=== PATIENT | male | born 1965 | race Caucasian/White ===

== ENCOUNTER 2024-05-20 14:17 | Outpatient (AMB) | payer BC, SELFPAY ==
--- NOTE | 2024-05-20 14:22 | A.OFFVIS_ITS ---
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 Job Analyst Required: No Allergies No Known Allergies Allergy (Verified 05/20/24 14:24) HPI Comments Details: 59y/o male comes for evaluation of tremors. He describes intermittent postural action tremors and rest tremors in his right hand for past 8 months. He feels it is better in past month. The episodes of tremors are sporadic. He is not sure of any exacerbating or relieving factors. He denies any problems with hand coordination. He reports midnight arousals, snoring , excessive daytime fatigue.No daytime sleepiness. Mood is stable No change in voice, no drooling No swallowing issues. No change in handwriting No problems using utensils No difficulty dressing or showers he has occasional dizziness. He has neck pain when he wakes up in the morning.No h/o head injury , falls, walking difficulties. He denies vertigo,diplopia, nausea,constipation. denies constipation. 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 Mother No problems noted. Brother HTN (hypertension) Social History Household Members: Spouse Housing: House Alcohol intake: current Comment: socially Patient Tobacco Use Status: Former Tobacco user Years Smoked: Dip- smokeless tobacco Physical Exam Vital Signs: Last Vital Signs Pulse 96 05/20/24 14:25 Resp 16 05/20/24 14:25 BP 126/82 05/20/24 14:25 Pulse Ox 97 05/20/24 14:25 Oxygen Delivery Method Room Air 05/20/24 14:25 BMI result Body Mass Index 35.5 Const General: cooperative, healthy appearing, comfortable and no acute distress Nutritional Appearance: obese Orientation/consciousness: patient oriented x3 HEENT Head: Yes normal to inspection Eyes Pupils: Equal, round and reactive pupils present Neuro Other: Decreased facial expression Decreased right facial movement Right hand rest tremors and postural tremors Cogwheel rigidity 1-2+ right UE Fine Finger movements - Decrease mildly R>L Foot taps decreased Mild R>L Gait - decreased arm swing on the right , rest tremors on the right General: patient oriented x3, moves all extremities and no focal motor deficits Cranial nerves: Yes Facial sensation intact/muscles of mastication intact, Yes Equal, round and reactive pupils present, Yes Bilaterally intact EOM present, Yes Nystagmus not present, Yes Normal facial strength present, Yes Midline tongue present, Yes Symmetric palate elevation present and Yes Ability to bilaterally elevate shoulders present Cognition (Neuro): normal cognition Motor exam (neuro): 5/5 motor strength present throughout and Tremors during motor activity present Deep tendon reflexes (DTR's): Right triceps reflex intensity grade: 1+, Left triceps reflex intensity grade: 1+, Rt Biceps (C5, C6): 1+, Left biceps reflex intensity grade: 1+, Right brachioradialis reflex intensity grade: 1+, Left brachioradialis reflex intensity grade: 1+, Right patellar reflex intensity grade: 1+ and Left patellar reflex intensity grade: 1+ Coordination: [id number] test normal Assessment & Plan Assessment & Plan (1) Pill rolling tremors: Comment: likely early tremor predominant Parkinsons disease Code(s): R25.1 - Tremor, unspecified Category: Medical (2) Snoring: Code(s): R06.83 - Snoring Category: Medical (3) Hypersomnia: Code(s): G47.10 - Hypersomnia, unspecified Category: Medical Plan Discussed the possible diagnosis of Parkinsons in detail I will evaluate hi with MRI brain Currently his symptoms does not interfere with his daily activities. I will monitor him clinically will consider YOLI scan Home sleep study for sleep apnea. Orders: Orders RT home sleep study Today G47.10 - Hypersomnia, unspecified, R06.83 - Snoring MR head/brain wo con Today R25.1 - Tremor, unspecified Coding Level of Care Code New Pt Level 4 (79364) Complex EM visit Add On G2211 Diagnoses Pill rolling tremors R25.1 Snoring R06.83 Hypersomnia G47.10
[2024-05-20 14:25] VITALS: BP 126/82; PULSE 96; RESP 16; O2SAT 97; BMI 35.5
== END 2024-05-20 15:06 | disposition home or self-care (01) ==
PROVIDERS: PCP Internal Medicine; Visit Provider Psychiatry & Neurology Neurology
DX: R25.1 Tremor, unspecified (principal); R06.83 Snoring; G47.10 Hypersomnia, unspecified
CPT/HCPCS: 99204

== ENCOUNTER → 2024-05-20 14:17 | Outpatient (BNVA) | payer BC, SELFPAY | PROVIDERS: PCP Internal Medicine; Visit Provider Psychiatry & Neurology Neurology ==

== ENCOUNTER → 2024-06-15 08:54 | Outpatient (BNV) | payer BC, SELFPAY | PROVIDERS: PCP Internal Medicine; Visit Provider Radiology Diagnostic Radiology | DX: R25.1 Tremor, unspecified (principal) | CPT/HCPCS: 70551 ==

== ENCOUNTER 2024-06-15 08:56 | Outpatient (REF) | payer BC, SELFPAY ==
--- NOTE | ~2024-06-15 | MR_ITS ---
EXAMINATION: MR BRAIN WITHOUT CONTRAST CLINICAL INFORMATION: 51-year-old male, pill-rolling tremors, rule out Parkinson's. COMPARISON: None available. TECHNIQUE: MRI of the brain was obtained using routine sequences without contrast. Exam was performed utilizing standard sequences on a 1.5 Jonna Siemens magnet, without IV contrast. FINDINGS: There is no diffusion restriction. There is no intracranial hemorrhage, acute infarction, mass effect, or edema. Ventricles, sulci, and cisterns are normal in size and configuration for patient age. No shift of midline. No abnormal patterns of atrophy. No significant abnormal hemosiderin deposition is identified. There are a few scattered punctate and minimally confluent foci of white matter T2 hyperintensity in the periventricular, subcortical, and hemispheric deep white matter, nonspecific, most likely representing mild changes of small vessel ischemia. Midline structures appear normally formed. The pituitary gland appears normal. Posterior fossa structures appear normal. Cerebellar tonsils are appropriately located. Major flow voids are preserved within the skull base. There is mild fusiform dilation and tortuosity of the left carotid siphon at the level of the sella. No discrete saccular aneurysm appreciated although correlation with MR angiography may be of benefit. The globes and orbital contents demonstrate no abnormalities. Paranasal sinuses are clear bilaterally. Nasal septum is midline without spur. There is a small amount of fluid in the left mastoid air cells, extending to the mastoid antrum. Right Mastoids and bilateral tympanic cavities are normally aerated. Extracranial soft tissues demonstrate prominence of the adenoidal soft tissues, consistent with reactive etiology. No suspicious bone marrow changes are evident. Atlantoaxial joint is normal. MR/MR head/brain wo con IMPRESSION: 1. No evidence of intracranial hemorrhage, acute infarction, mass effect, or edema. 2. Mild changes of small vessel ischemia, age appropriate. 3. No abnormal patterns of atrophy. No MR findings specific to Parkinson's, would recommend clinical diagnosis based on symptomatology. 4. Left mastoid effusion. 5. Tortuosity and mild fusiform dilation of the left internal carotid artery flow void within the carotid siphon region. No discrete saccular aneurysm appreciated although this is not a dedicated angiographic study. Consider correlating with MR angiography or CT angiography. 6. Additional ancillary findings as discussed in the body of the report. Electronically signed by: Raffi Mahmood MD 06/27/2024 11:19 AM EDT
== END 2024-06-15 08:57 | disposition home or self-care (01) ==
LOC: HO.MRI 08:56
PROVIDERS: PCP Internal Medicine; Visit Provider Psychiatry & Neurology Neurology
DX: R25.1 Tremor, unspecified (principal)
CPT/HCPCS: 70551

== ENCOUNTER → 2024-07-07 14:48 | Outpatient (REF) | payer BC, SELFPAY | LOC: HO.SL 14:48 | PROVIDERS: PCP Internal Medicine; Visit Provider Psychiatry & Neurology Neurology | DX: G47.33 Obstructive sleep apnea (adult) (pediatric) (principal) | CPT/HCPCS: 95806 ==

== ENCOUNTER → 2024-07-07 15:08 | Outpatient (BNV) | payer BC, SELFPAY | PROVIDERS: PCP Internal Medicine; Visit Provider Psychiatry & Neurology Neurology | DX: G47.33 Obstructive sleep apnea (adult) (pediatric) (principal) | CPT/HCPCS: 95806 ==

== ENCOUNTER 2024-08-05 08:27 | Outpatient (REF) | payer BC, SELFPAY ==
[2024-08-05] MEDS: gadobutroL 10 ML VIAL IVPUSH (10:58)
== END 2024-08-05 08:28 | disposition home or self-care (01) ==
LOC: HO.MRI 08:27
PROVIDERS: PCP Internal Medicine; Visit Provider Psychiatry & Neurology Neurology
DX: R93.0 Abnormal findings on diagnostic imaging of skull and head, not elsewhere classified (principal)
CPT/HCPCS: 70546; A9585

== ENCOUNTER 2024-12-04 13:45 | Outpatient (AMB) | payer BC, SELFPAY ==
[2024-12-04 13:53] VITALS: BP 122/94; PULSE 86; O2SAT 99; BMI 35.6
--- NOTE | 2024-12-04 13:53 | A.OFFVIS_ITS ---
Vital Signs 12/04/24 13:53 Height 5 ft 10 in Weight 248 lb BMI 35.6 BP 122/94 H Blood Pressure Location Rt brachial Position Sitting Pulse 86 Pulse Source Pulse Oximeter Pulse Oximetry (%) 99 Oxygen Delivery Method Room Air Intake Visit Reasons: follow up Tremors Intake Note: Patient presents for follow up sleep study done 07/07 and MRI done 06/15/24; MRA done 08/05/24 Allergies No Known Allergies Allergy (Verified 12/04/24 13:56) HPI Comments Details: 59y/o male comes for f/u of tremors, parkinsonsism HST showed severe sleep apnea- AHI 20 and O2 e[place]enia was 78%. He is on AUtoPAP and is sleeping well. He denies nay worsening of tremors. He is cocnerned about his memory.. He describes intermittent postural action tremors and rest tremors in his right hand for past 8 months. He feels it is better in past month. The episodes of tremors are sporadic. He is not sure of any exacerbating or relieving factors. He denies any problems with hand coordination. Mood is stable No change in voice, no drooling No swallowing issues. No change in handwriting No problems using utensils No difficulty dressing or showers he has occasional dizziness. He has neck pain when he wakes up in the morning.No h/o head injury , falls, walking difficulties. He denies vertigo,diplopia, nausea,constipation. denies constipation. 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 Mother No problems noted. Brother HTN (hypertension) Social History Household Members: Spouse Housing: House Alcohol intake: current Comment: socially Patient Tobacco Use Status: Former Tobacco user Years Smoked: Dip- smokeless tobacco Physical Exam Vital Signs: Last Vital Signs Pulse 86 03/20/25 13:53 BP 122/94 H 12/04/24 13:53 Pulse Ox 99 12/04/24 13:53 Oxygen Delivery Method Room Air 12/04/24 13:53 BMI result Body Mass Index 35.6 Const General: cooperative, healthy appearing, comfortable and no acute distress Nutritional Appearance: obese Orientation/consciousness: patient oriented x3 HEENT Head: Yes normal to inspection Eyes Pupils: Equal, round and reactive pupils present Neuro Other: Decreased facial expression Decreased right facial movement Right hand rest tremors and postural tremors Cogwheel rigidity 1-2+ right UE Fine Finger movements - Decrease mildly R>L Foot taps decreased Mild R>L Gait - decreased arm swing on the right , rest tremors on the right General: patient oriented x3, moves all extremities and no focal motor deficits Cranial nerves: Yes Facial sensation intact/muscles of mastication intact, Yes Equal, round and reactive pupils present, Yes Bilaterally intact EOM present, Yes Nystagmus not present, Yes Normal facial strength present, Yes Midline tongue present, Yes Symmetric palate elevation present and Yes Ability to bilaterally elevate shoulders present Cognition (Neuro): normal cognition Motor exam (neuro): 5/5 motor strength present throughout and Tremors during motor activity present Coordination: [id number]-ma-[id number] test normal Orientation What is the (year) (season) (date) (day) (month)?: year, season, date, day and month Where are we (state) (county) (town or city) (hospital) (floor)?: state, county, town or city, hospital/clinic and floor Registration Name of 3 unrelated objects clearly and slowly, then ask patient to repeat all 3 of them. (1st repeat determines score. Make sure they can repeat all three): object 1, object 2 and object 3 Attention & Calculation (CHOOSE ONE) Spell WORLD backwards (DLROW): 5 letters Recall Ask patient to repeat the 3 items from question #3.: object 1 and object 2 Language Show patient a wristwatch & ask what it is. Repeat for pencil.: watch and pencil Ask the patient to repeat the phrase 'No ifs, ands, or buts' after you.: correct Ask the patient to 'take a piece of paper with their right hand' 'fold paper in half' 'place paper on floor': take paper in right hand, fold paper in half and place paper on floor Print the sentence 'CLOSE YOUR EYES' on a piece. If patient actually closes eyes then score.: followed written direction Give patient a blank piece of paper & ask to write a sentence. Score if it contains a noun & verb.: sentence contains subject and verb Ask patient to copy figure of intersecting pentagons exactly. Score if all 10 angles & 2 intersects are included.: all 10 angles present & 2 are intersected Score Score: 29 Results Reviewed Results Reviewed: 07/10 MRI- No evidence of intracranial hemorrhage, acute infarction, mass effect, or edema. 2. Mild changes of small vessel ischemia, age appropriate. 3. No abnormal patterns of atrophy. No MR findings specific to Parkinson's, would recommend clinical diagnosis based on symptomatology. 4. Left mastoid effusion. 5. Tortuosity and mild fusiform dilation of the left internal carotid artery flow void within the carotid siphon region. No discrete saccular aneurysm appreciated although this is not a dedicated angiographic study. Consider correlating with MR angiography or CT angiography. 6. Additional ancillary findings as discussed in the body of the report. MRA - normal Assessment & Plan Assessment & Plan (1) Pill rolling tremors: Comment: likely early tremor predominant Parkinsons disease Code(s): R25.1 - Tremor, unspecified Category: Medical (2) Obstructive sleep apnea hypopnea, severe: Code(s): G47.33 - Obstructive sleep apnea (adult) (pediatric) Category: Medical (3) Cognitive impairment: Code(s): R41.89 - Other symptoms and signs involving cognitive functions and awareness Category: Medical Plan Discussed the possible diagnosis of Parkinsons in detail Currently his symptoms does not interfere with his daily activities. I will monitor him clinically Neuropsyhc eval Cognitive therapy check Vit B 12 TSH ESR CBC CMP YOLI scan Continue CPAP- compliance stressed Orders: Orders Vitamin B12 and Folate Today R41.89 - Other symptoms and signs involving cognitive functions and awareness DaTscan Today R25.1 - Tremor, unspecified TSH reflex Free T4 Today R41.89 - Other symptoms and signs involving cognitive functions and awareness Erythrocyte Sedimentation Rate Today R41.89 - Other symptoms and signs involving cognitive functions and awareness Comprehensive Met. Panel Today R41.89 - Other symptoms and signs involving cognitive functions and awareness Complete Blood Count Auto Diff Today R41.89 - Other symptoms and signs involving cognitive functions and awareness Referrals Neuropsychiatry Referral R41.89 - Other symptoms and signs involving cognitive functions and awareness Speech and Hearing Referral R41.89 - Other symptoms and signs involving cognitive functions and awareness Coding Level of Care Code Est Pt Level 4 (83727) Complex EM visit Add On G2211 Diagnoses Pill rolling tremors R25.1 Obstructive sleep apnea hypopnea, severe G47.33 Cognitive impairment R41.89
== END 2024-12-04 14:27 | disposition home or self-care (01) ==
LOC: HO.HSMS 13:45
PROVIDERS: PCP Internal Medicine; Visit Provider Psychiatry & Neurology Neurology
DX: R25.1 Tremor, unspecified (principal); G47.33 Obstructive sleep apnea (adult) (pediatric); R41.89 Other symptoms and signs involving cognitive functions and awareness
CPT/HCPCS: 99214

== ENCOUNTER 2024-12-04 13:45 | Outpatient (REF) | payer BC, SELFPAY ==
[2024-12-04 18:07] LABS: MANUAL DIFF FLAG NO
[2024-12-04 18:34] LABS: Basophils Absolute Auto 0.1 X10*3/uL (0.0-0.2); Basophils Percent Auto 0.8 % (0-2); Eosinophils Absolute Auto 0.2 X10*3/uL (0.0-0.4); Eosinophils Percent Auto 2.6 % (0-4); Hematocrit 47.2 % (42.0-52.0); Hemoglobin 15.9 g/dl (14.0-18.0); Imm Gran Abs Auto 0.02 X10*3/uL (0.00-0.03); Imm Gran Pct Auto 0.3 % (0.0-0.4); Lymphocytes Absolute Auto 2.1 X10*3/uL (1.2-4.9); Lymphocytes Percent Auto 31.1 % (20-40); Mean Corpuscular HGB Conc 33.7 g/dl (31.0-36.0); Mean Corpuscular Hemoglobin 30.3 pg (27.0-33.0); Mean Corpuscular Volume 89.9 fL (80.0-98.0); Mean Platelet Volume 10.8 fL (9.4-12.4); Monocytes Absolute Auto 0.6 X10*3/uL (0.1-1.2); Monocytes Percent Auto 8.3 % (2-11); Neutrophils Absolute Auto 3.8 x10*3/uL (2.0-8.3); Neutrophils Percent Auto 56.9 % (45-73); Platelet Count 163 X10*3/uL (160-400); Red Blood Count 5.25 X10*6/uL (4.60-5.80); Red Cell Distribution Width 12.8 % (11.0-16.0); White Blood Count 6.6 X10*3/uL (4.8-10.8)
[2024-12-04 18:51] LABS: Alanine Aminotransferase 68 U/L (0-40); Albumin Level 4.5 g/dL (3.5-5.0); Alkaline Phosphatase 67 U/L (39-117); Anion Gap 15 (12-20); Aspartate Amino Transferase 42 U/L (5-37); Bilirubin Total 0.8 mg/dL (0.0-1.0); Blood Urea Nitrogen 17 mg/dL (9-16); Calcium 9.8 mg/dL (8.4-10.2); Carbon Dioxide 25 mmol/L (22-29); Chloride 104 mmol/L (96-108); Estimated Glomerular Filt Rate > 60; Glucose Random 87 mg/dL (60-115); Potassium 3.6 mmol/L (3.3-5.1); Sodium 140 mmol/L (135-145); Total Protein 7.8 g/dL (6.5-8.0)
[2024-12-04 19:08] LABS: TSH reflex Free T4 0.88 uIU/mL (0.32-4.0)
[2024-12-04 19:14] LABS: Folate 16.1 ng/mL (> or = 4.0); Vitamin B12 688 pg/mL (200-900)
[2024-12-04 19:20] LABS: Erythrocyte Sedimentation Rate 3 MM/HR (0-15)
== END 2024-12-04 13:46 | disposition home or self-care (01) ==
LOC: HO.HKASLDS 13:45
PROVIDERS: PCP Internal Medicine; Visit Provider Psychiatry & Neurology Neurology
DX: R41.89 Other symptoms and signs involving cognitive functions and awareness (principal); R25.1 Tremor, unspecified
CPT/HCPCS: 36415; 80053; 82607; 82746; 84443; 85025; 85652

== ENCOUNTER 2025-04-08 13:52 | Outpatient (AMB) | payer BC, SELFPAY ==
[2025-04-08 13:54] VITALS: BP 124/90; PULSE 98; O2SAT 78; BMI 35.0
--- NOTE | 2025-04-08 13:54 | A.OFFVIS_ITS ---
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 No change since last visit. YOLI scan was positive for decreased uptake c/w parkinsons. His spouse is concerned about his cognition.He reports short term memory issues. misplaces things etc . He is good with driving. HST showed severe sleep apnea- AHI 20 and O2 [place] was 78%. He is on AUtoPAP and is sleeping well. Compliance- (01/09- )77% 6 hrs residual AHI 2.7 He reports difficulty falling asleep. History from initial visit-He denies any worsening of tremors. He is concerned about his memory.. He describes intermittent postural action tremors and rest tremors in his right hand for past 8 months. He feels it is better in past month. The episodes of tremors are sporadic. He is not sure of any exacerbating or relieving factors. He denies any problems with hand coordination. Mood is stable No change in voice, no drooling No swallowing issues. No change in handwriting No problems using utensils No difficulty dressing or showers he has occasional dizziness. He has neck pain when he wakes up in the morning.No h/o head injury , falls, walking difficulties. He denies vertigo,diplopia, nausea,constipation. denies constipation. 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 Mother No problems noted. Brother HTN (hypertension) Social History Household Members: Spouse Housing: House Alcohol intake: current Comment: socially Years Smoked: Dip- smokeless tobacco Physical Exam Vital Signs: Last Vital Signs Pulse 98 04/08/25 13:54 BP 124/90 H 04/08/25 13:54 Pulse Ox 78 L 04/08/25 13:54 Oxygen Delivery Method Room Air 04/08/25 13:54 BMI result Body Mass Index 35.0 Const General: cooperative, healthy appearing, comfortable and no acute distress Nutritional Appearance: obese Orientation/consciousness: patient oriented x3 HEENT Head: Yes normal to inspection Eyes Pupils: Equal, round and reactive pupils present Neuro Other: Decreased facial expression Decreased right facial movement Right hand rest tremors and postural tremors Cogwheel rigidity 1-2+ right UE Fine Finger movements - Decrease mildly R>L Foot taps decreased Mild R>L Gait - decreased arm swing on the right , rest tremors on the right General: patient oriented x3, moves all extremities and no focal motor deficits Cranial nerves: Yes Facial sensation intact/muscles of mastication intact, Yes Equal, round and reactive pupils present, Yes Bilaterally intact EOM present, Yes Nystagmus not present, Yes Normal facial strength present, Yes Midline tongue present, Yes Symmetric palate elevation present and Yes Ability to bilaterally elevate shoulders present Cognition (Neuro): normal cognition Motor exam (neuro): 5/5 motor strength present throughout and Tremors during motor activity present Coordination: [id number] test normal Assessment & Plan Assessment & Plan (1) Parkinsons disease: Code(s): G20.A1 - Parkinson's disease without dyskinesia, without mention of fluctuations Category: Medical (2) Obstructive sleep apnea hypopnea, severe: Code(s): G47.33 - Obstructive sleep apnea (adult) (pediatric) Category: Medical (3) Cognitive impairment: Code(s): R41.89 - Other symptoms and signs involving cognitive functions and awareness Category: Medical Plan lCognitive evaluation and therapy check Vit B 12 TSH ESR CBC CMP- normal YOLI scan- positive for Parkinsons Continue CPAP- compliance stressed PT for gait Orders: Orders PT Evaluation and Treatment Today G20.A1 - Parkinson's disease without dyskinesia, without mention of fluctuations Coding Level of Care Code Est Pt Level 4 (62714) Complex EM visit Add On G2211 Diagnoses Parkinsons disease G20.A1 Obstructive sleep apnea hypopnea, severe G47.33 Cognitive impairment R41.89
--- OUTSIDE RECORDS SUMMARY | 2025-04-08 14:38 | XMS_ITS | Clinical Summary ---
Author Organization [facility] Address [address] [place] [address] [place] [phone] Phone Care Team Providers Care Slot Ambassador Name Role Phone Ronnie Abdi DO Primary Care Provider [phone] Allergies No known active allergies Medications hydroCHLOROthiaz keshawn (HYDRODIURIL) 50 MG tablet Take 50 mg by mouth every morning. 02/28/2022 Active colchicine (COLCRYS) 0.6 mg tablet Take 0.6 mg by mouth daily. 02/28/2022 Active amLODIPine (NORVASC) 10 MG tablet Take 10 mg by mouth daily. 02/28/2022 Active allopurinol (ZYLOPRIM) 100 MG tablet Take 100 mg by mouth daily. 02/28/2022 Active Active Problems No known active problems Social History Tobacco Use Types Packs/Day Years Used Date Smoking Tobacco: Never Smokeless Tobacco: Never Alcohol Use Standard Drinks/Week Comments Not Currently 0 (1 standard drink = 0.6 oz pur e alcohol) Education Answer Date Recorded Are you interested in more education? Not on nixon e 01/13/2023 Are you concerned about learning? Not on file 01/13/2023 No 01/13/2023 No 01/13/2023 Digital Access Answer Date Recorded No 02/11/2023 No 02/11/2023 No 02/11/2023 Reliable internet access at home? Not on file 02/11/2023 Device with a working camera? Not on file Sex and Gender Information Value Date Recorded Sex Assigned at Not on file Legal Sex Male 12:18 PM EDT Gender Identity Not on file Sexual Orientation Not on file Last Filed Vital Signs Vital Sign Reading Time Taken Comments Blood Pressure 128/74 05/17/2022 12:50 PM EDT Pulse 71 05/17/2022 12:50 PM EDT Temperature 37.1 C (98.8 F) 05/17/2022 12:50 PM EDT Respiratory Rate 18 05/17/2022 12:50 PM EDT Oxygen Saturation 99% 05/17/2022 12:50 PM EDT Inhaled Oxygen Concentration - - Weight 106.6 kg (235 lb) 05/17/2022 12:50 PM EDT Height 177.8 cm (5' 10 ) 05/17/2022 12:50 PM EDT Body Mass Index 33.72 05/17/2022 12:50 PM EDT Plan of Treatment Health Maintenance Due Date Last Done Comments CREATININE LEVEL 1966 LIPID PANEL 1966 POTASSIUM LEVEL 1966 DEPRESSION SCREENING 1978 HEPATITIS C SCREENING 1984 HIV ONE-TIME SCREENING (18-6 5 YEARS) 1984 SCREENING FOR DIABETES 2001 COLOGUARD 2011 COLONOSCOPY 2011 COLORECTAL CANCER SCREENING 2011 FIT TEST 2011 FOBT 2011 SIGMOIDOSCOPY 2011 VIRTUAL COLONOSCOPY 2011 PNEUMOCOCCAL VACCINES (50+ years) (2 of 2 - PCV) 2016 07/04/2010 ZOSTER VACCINES (1 of 2) 2016 Adult Td,Tdap Booster 06/02/2023 06/02/2013 , 07/04/2010 COVID-19 VACCINE (2023-2 5 season) 2024 SMOKING STATUS SCREENING (On ce After 26 Yrs) Completed 05/17/2022 HEPATITIS A VACCINES Aged Out No long er eligible based on patient's age to complete this topic HIB VACCINES Aged Out No longer eligi ble based on patient's age to complete this topic MENINGOCOCCAL VACCINES (ACWY) Aged Out No longer eligible based on patient's age to complete this topic MENINGOCOCCAL VACCINES (B) Aged Out N o longer eligible based on patient's age to complete this topic Medical Devices Not on file Insurance PPO EPO PPO EPO PPO EPO PPO EPO PPO EPO PPO EPO [place] [address] [place] [address] PPO EPO [facility] PPO EPO Care Teams Slot Ambassador Relationship Specialty Start Date End Date Ronnie Abdi DO [address] [place] [id number] PCP - General Internal Medicine 05/17/22 Additional Source Comments The information contained in this document represents components of the legal health record. It is not the complete legal health record.[facility]
== END 2025-04-08 14:31 | disposition home or self-care (01) ==
LOC: HO.HSMS 13:52
PROVIDERS: PCP Internal Medicine; Visit Provider Psychiatry & Neurology Neurology
DX: G20.A1 Parkinson's disease without dyskinesia, without mention of fluctuations (principal); G47.33 Obstructive sleep apnea (adult) (pediatric); R41.89 Other symptoms and signs involving cognitive functions and awareness
CPT/HCPCS: 99214